=== PATIENT | female | born 1960 | race African-American/Black ===

== ENCOUNTER 2024-08-04 23:03 | Emergency (ER) | payer SELFPAY ==
[~2024-08-04] VITALS: Ht 170.2 cm; Wt 70.0 kg
[2024-08-04 23:07] VITALS: TEMP 98.5; O2SAT 98
[2024-08-05 01:25] VITALS: BP 153/80; PULSE 99; RESP 25; O2SAT 97
== END 2024-08-05 02:59 | disposition home or self-care (01) ==
LOC: ER 23:38
DX: F25.9 Schizoaffective disorder, unspecified (principal); F31.9 Bipolar disorder, unspecified
CPT/HCPCS: 99283